=== PATIENT | male | born 1955 | race Caucasian/White ===

== ENCOUNTER → 2017-05-07 | Outpatient (CLI) | payer BC ==
[~2017-05-07] MED LIST: ALFU10TA2 PO; ALLO300T2 PO; ATOR-22 PO; HYDC25 PO; HYDR-3419 PO; LISI-526 PO; MELO15TA10 PO
--- NOTE | 2017-05-07 18:08 | DIAGNOSTIC IMAGING REPORT ---
CT SCAN OF THE ABDOMEN AND PELVIS WITHOUT IV CONTRAST CLINICAL HISTORY: Nephrolithiasis. COMPARISON STUDY: Abdominal CT dated 12/05/2011. TECHNIQUE: CT scan of the abdomen and pelvis is performed from the lung bases to the proximal femora. Images are reviewed in the axial, sagittal, and coronal planes. IV contrast was not administered for this examination as per the referring clinician. Automated dose control exposure was utilized. CT DOSE: 1704.82 mGy.cm FINDINGS: Lung bases: The heart is normal in size and without pericardial effusion. A punctate calcified granuloma is noted in the right middle lobe. The lung bases are otherwise clear. There is a tiny hiatal hernia. Liver: The unenhanced liver is normal in size, contour, and attenuation. There is no intrahepatic biliary ductal dilatation. Gallbladder: Unremarkable. Spleen: Normal in size and attenuation. Pancreas: The unenhanced pancreas is grossly unremarkable. Adrenal glands: Unremarkable. Kidneys: The unenhanced kidneys demonstrate mild cortical atrophy. There is a 10 mm obstructing calculus in the left proximal ureter at the level of L4. This is best seen on axial image #246, and this causes moderate to severe left-sided hydronephrosis. There is associated left-sided perinephric stranding and trace fluid. There is a 15 mm nonobstructing calculus in the interpolar left kidney. At least 3 tiny nonobstructing calculi are present left lower pole and measure up to 5 mm. No right renal calculi are identified and there is no right-sided hydronephrosis. There is no evidence of contour deforming renal mass lesion. Abdominal vasculature: The abdominal aorta is normal in course and caliber noting moderate atherosclerotic calcification. Bowel: The small bowel and colon are normal in course and caliber. The appendix is well-visualized and normal. Peritoneum: There is no intraperitoneal free air or abdominal ascites. There is a fat-containing umbilical hernia. Lymphadenopathy: None. Pelvic viscera: The prostate gland is mildly enlarged and demonstrates median lobe hypertrophy. The bladder is normal as imaged. There is a small fat-containing right inguinal hernia. Skeletal structures: The skeletal structures are osteopenic. There is mild to moderate lumbosacral spondylosis. A large posterior discussed by complex at L5-S1 likely contributes to acquired compromise of the central canal. No lytic or blastic lesions are seen. IMPRESSION: 1. There is a 10 mm obstructing calculus in the left proximal ureter. This causes moderate to severe left-sided hydronephrosis. 2. An additional 15 mm nonobstructing calculus is present in the interpolar left kidney. 3. Additional smaller nonobstructing calculi are present in the left lower pole. 4. No right renal calculi are identified. 5. Additional findings as above. Electronically signed by: Rolly Frazier M.D. 05/07/2017 6:07 PM Dictated Date/Time: 05/07/2017 5:59 PM
--- NOTE | 2017-05-07 18:15 | DIAGNOSTIC IMAGING REPORT ---
TWO VIEW CHEST CLINICAL HISTORY: Preoperative examination. Nephrolithiasis. FINDINGS: PA and lateral chest radiographs are obtained. No prior studies are available for comparison at the time of dictation. The cardiomediastinal silhouette is unremarkable. The lungs and pleural spaces are clear. There is no pneumothorax. The skeletal structures appear osteopenic. Mild degenerative change is seen in the thoracic spine. IMPRESSION: No active disease in the chest. Electronically signed by: Rolly Frazier M.D. 05/07/2017 6:14 PM Dictated Date/Time: 05/07/2017 6:13 PM
[2017-05-07 18:42] LABS: BASO % 0.1 %; BASO ABS # 0.01 K/uL (0-0.2); COMPLETE YES; EOS % 1.7 %; HEMATOCRIT 47.4 % (42-52); IG% 0.2 %; LYMPH % 17.8 %; LYMPH ABS # 1.91 K/uL (1.2-3.4); MEAN CELL VOLUME 96.9 fL (80-100); MEAN CORPUSCULAR HEMOGLOBIN 31.9 pg (25-34); MEAN CORPUSCULAR HGB CONC 32.9 g/dl (32-36); MEAN PLATELET VOLUME 9.1 fL (7.4-10.4); MONO % 5.6 %; NEUT % 74.6 %; PLATELET COUNT 270 K/uL (130-400); RED BLOOD COUNT 4.89 M/uL (4.7-6.1); WHITE BLOOD COUNT 10.76 K/uL (4.8-10.8)
[2017-05-07 18:52] LABS: URINE APPEARANCE CLEAR (CLEAR); URINE BILIRUBIN NEG (NEG); URINE COLOR YELLOW; URINE EPITHELIAL CELL AUTO 0-5 /lpf (0-5); URINE NITRITE NEG (NEG); UROBILINOGEN NEG (NEG)
[2017-05-07 18:54] LABS: MANUAL MICROSCOPIC REQUIRED? NO; REVIEW REQ? YES
[2017-05-07 19:13] LABS: BLOOD UREA NITROGEN 19 mg/dl (7-18); BUN/CREATININE RATIO 10.8 (10-20); CARBON DIOXIDE 26 mmol/L (21-32); CHLORIDE 112 mmol/L (98-107); POTASSIUM 4.6 mmol/L (3.5-5.1); SODIUM 143 mmol/L (136-145)
== END | disposition home or self-care (01) ==
LOC: C.CTS 17:41
PROVIDERS: ATTEND Urology
DX: N20.0 Calculus of kidney (principal); N20.1 Calculus of ureter; R94.31 Abnormal electrocardiogram [ECG] [EKG]

== ENCOUNTER → 2017-05-10 | Day surgery (SDC) | payer BC ==
[2017-05-08 09:09] VITALS: Ht 175.3 cm; Wt 104.5 kg
[~2017-05-10] VITALS: Ht 175.3 cm; Wt 104.5 kg
[~2017-05-10] MED LIST changes: +ATROPINE SULFATE 0.1 MG/ML 5ML SYR IV PRN; +CIPROFLOXACIN 400MG / D5W IV SCH; +DEXAMETHASONE SOD INJ 4 MG/ML VIAL IV PRN; +DEXAMETHASONE SOD INJ 4 MG/ML VIAL ONE; +EpHEDrine SULFATE INJ 50 MG/ML AMP IV PRN; +FENTANYL CITRATE INJ 50 MCG/1 ML 2 ML VIAL IV PRN; +FENTANYL CITRATE INJ 50 MCG/1 ML 2 ML VIAL ONE; -HYDC25 PO; +HYDROCODONE/ACETAMOPHEN 5/325MG TAB ONE; +KETOROLAC TROMETHAMINE 30 MG/ML VIAL IV. PRN; +LABETALOL HCL IV 5 MG/ML 20ML IV PRN; +LACTATED RINGER'S 1000ML 1,000 ML IV SCH; +LIDOCAINE HCL 2% 2 ML VIAL (20MG/ML) ONE; +METOCLOPRAMIDE HCL INJ 5 MG/ML 2 ML VIAL IV PRN; +MIDAZOLAM HCL 1 MG/ML 2ML VIAL ONE; +MoRPHine SULFATE 10 MG/ML CARP/VIAL IV PRN; +NURSING VERBAL MED ORDER ONE; +ONDANSETRON INJ 2 MG/ML 2 ML VIAL IV PRN; +ONDANSETRON INJ 2 MG/ML 2 ML VIAL ONE; +PHENYLEPHRINE 100MCG/ML 5ML SYR IV PRN; +PROPOFOL IV EMULSION 10 MG/ML 20 ML VIAL IV ONE
--- NOTE | 2017-05-10 08:48 | DIAGNOSTIC IMAGING REPORT ---
[facility] CLINICAL HISTORY: Nephrolithiasis. COMPARISON STUDY: CT of the abdomen and pelvis May 07, 2017. FINDINGS: Pelvic calcifications reflect phleboliths and prostatic calcifications. A 1.1 cm proximal left ureteral calculus is noted. This may be slightly more proximal in location than on exam of May 07, 2017. A 1.7 cm left renal calculus is noted. A few smaller left renal calculi are present. There are no right renal calculus. IMPRESSION: 1. 1.1 cm proximal left ureteral calculus. 2. 1.7 cm left renal calculus and a few smaller left renal calculi. Electronically signed by: Konrad Sotelo M.D. 05/10/2017 8:47 AM Dictated Date/Time: 05/10/2017 8:22 AM
--- NOTE | 2017-05-10 09:38 | History & Physical Bridge - SC ---
H&P Re-Evaluation Bridge Note: I have examined the patient, reviewed the History & Physical and in the interval since the performance of the History & Physical I have noted the following changes of clinical significance: No changes noted
--- NOTE | 2017-05-10 10:35 | [facility] Post Operative Brief Note ---
Immediate Operative Summary Operative Date May 10, 2017. Pre-Operative Diagnosis Left ureteral calculi Post-Operative Diagnosis Same Procedure(s) Performed Left Extracorporeal Shock Wave Lithotripsy - Ureteral Surgeon Dr. Hernandez Foot Worker Surgeon(s) None Estimated Blood Loss 0 mL Findings stone appeared to fragment Specimens None
--- NOTE | 2017-05-10 10:37 | Discharge Instructions-SurgCtr ---
Discharge Instructions Date of Service May 10, 2017. Visit Reason for Visit: Stones Discharge Discharge Diagnosis / Problem: post op left eswl Discharge Goals Goal(s): Decrease discomfort, Improve function, Increase independence, Improve disease control Activity Recommendations Activity Limitations: per Instructions/Follow-up section (no driving on narcotics) Anesthesia . Post Anesthesia Instructions: If you have had General Anesthesia or IV Sedation: * Do not drive today. * Resume driving when surgeon permits. * Do not make important decisions or sign legal documents today. * Call surgeon for: 1. Temperature elevations greater than 101 degrees F. 2. Uncontrollable pain. 3. Excessive bleeding. 4. Persistent nausea and vomiting. 5. Medication intolerance (nausea, vomiting or rash). * For nausea and vomiting use only clear liquids such as: tea, soda, bouillon until nausea subsides, then gradually increase diet as tolerated. * If you have any concerns or questions, call your surgeon's office. If physician is unavailable and it is an emergency, call 911 or go to the nearest emergency room. . Diet Recommendations Home Diet: resume previous diet Procedures Procedures Performed: Left Extracorporeal Shock Wave Lithotripsy - Ureteral Pending Studies Studies pending at discharge: no Medical Emergencies . Who to Call and When: Medical Emergencies: If at any time you feel your situation is an emergency, please call 911 immediately. . Non-Emergent Contact Non-Emergency issues call your: Primary Care Provider, Urologist Call Non-Emergent contact if: temperature is above 101, your pain is not controlled . . "Provider Documentation" section prepared by Jethro Hernandez. .
--- NOTE | 2017-05-10 11:13 | OPERATIVE REPORT ---
DATE OF OPERATION: 05/10/2017 PREOPERATIVE DIAGNOSIS: Left ureteral stone. POSTOPERATIVE DIAGNOSIS: Same. PROCEDURE PERFORMED: Left ureteral ESWL. SURGEON: Dr. Hernandez. ANESTHESIA: General. INDICATIONS: The patient is a 61-year-old male who has been forming a number stones over the past several years including the large staghorn stone that required percutaneous removal on the same side several years ago who presents now with a 1 cm proximal ureteral stone and a larger 1.5 cm renal stone. The plan was to hit the ureteral stone first but since it was in the level of the kidney, we could not do both at the same time. DESCRIPTION OF THE PROCEDURE: The patient was taken to the operating room. He was given general anesthesia and Venodyne stockings had been placed and he had been given preoperative antibiotics. Stone was attempted to be visualized posteriorly but had to go over the top to get the stone into view. He was then given 2500 shocks, the majority at level 5. The stone did appear to fragment during the course of the procedure, it was difficult to see at the end of the procedure. I attest to the content of the Intraoperative Record and any orders documented therein. Any exception s are noted below.
[2017-05-10 12:10] VITALS: BP 132/66; PULSE 68; TEMP 36.6; O2SAT 98
--- NOTE | 2017-05-10 12:12 | Anesthesia Progress Nt - [facility] ---
Anesthesia Post Op Note Date & Time May 10, 2017 at 12:12 Vital Signs Pain Intensity: 4 Vital Signs Past 12 Hours Date Time Temp Pulse Resp B/P (MAP) Pulse Ox O2 Delivery O2 Flow Rate FiO2 05/10/17 11:40 36.3 61 14 144/82 (102) 100 Room Air 05/10/17 11:14 69 10 97 05/10/17 11:14 36.4 69 10 05/10/17 11:12 147/79 05/10/17 11:09 66 14 05/10/17 11:09 66 14 93 05/10/17 11:07 155/86 05/10/17 11:04 77 16 94 05/10/17 11:04 77 16 05/10/17 11:02 158/87 05/10/17 10:59 68 14 05/10/17 10:59 65 14 98 05/10/17 10:57 144/87 05/10/17 10:54 72 15 05/10/17 10:54 73 15 98 05/10/17 10:52 172/81 05/10/17 10:50 36.2 70 16 172/81 97 Mask 6 05/10/17 07:41 36.5 54 18 155/86 (109) 97 Room Air Notes Mental Status: alert / awake / arousable, participated in evaluation Pt Amnestic to Procedure: Yes Nausea / Vomiting: adequately controlled Pain: adequately controlled Airway Patency, RR, SpO2: stable & adequate BP & HR: stable & adequate Hydration State: stable & adequate Anesthetic Complications: no major complications apparent
== END | disposition home or self-care (01) ==
LOC: X.SURG 06:27
PROVIDERS: ATTEND Urology
DX: N20.1 Calculus of ureter (principal); N40.1 Benign prostatic hyperplasia with lower urinary tract symptoms; N13.8 Other obstructive and reflux uropathy; E78.00 Pure hypercholesterolemia, unspecified; I10 Essential (primary) hypertension; Z80.41 Family history of malignant neoplasm of ovary; Z82.49 Family history of ischemic heart disease and other diseases of the circulatory system; Z83.3 Family history of diabetes mellitus; Z72.0 Tobacco use; Z79.899 Other long term (current) drug therapy

== ENCOUNTER → 2017-05-21 | Outpatient (CLI) | payer BC ==
[~2017-05-21] MED LIST changes: -ATROPINE SULFATE 0.1 MG/ML 5ML SYR IV PRN; -CIPROFLOXACIN 400MG / D5W IV SCH; -DEXAMETHASONE SOD INJ 4 MG/ML VIAL IV PRN; -DEXAMETHASONE SOD INJ 4 MG/ML VIAL ONE; -EpHEDrine SULFATE INJ 50 MG/ML AMP IV PRN; -FENTANYL CITRATE INJ 50 MCG/1 ML 2 ML VIAL IV PRN; -FENTANYL CITRATE INJ 50 MCG/1 ML 2 ML VIAL ONE; -HYDROCODONE/ACETAMOPHEN 5/325MG TAB ONE; -KETOROLAC TROMETHAMINE 30 MG/ML VIAL IV. PRN; -LABETALOL HCL IV 5 MG/ML 20ML IV PRN; -LACTATED RINGER'S 1000ML 1,000 ML IV SCH; -LIDOCAINE HCL 2% 2 ML VIAL (20MG/ML) ONE; -METOCLOPRAMIDE HCL INJ 5 MG/ML 2 ML VIAL IV PRN; -MIDAZOLAM HCL 1 MG/ML 2ML VIAL ONE; -MoRPHine SULFATE 10 MG/ML CARP/VIAL IV PRN; -NURSING VERBAL MED ORDER ONE; -ONDANSETRON INJ 2 MG/ML 2 ML VIAL IV PRN; -ONDANSETRON INJ 2 MG/ML 2 ML VIAL ONE; -PHENYLEPHRINE 100MCG/ML 5ML SYR IV PRN; -PROPOFOL IV EMULSION 10 MG/ML 20 ML VIAL IV ONE
== END | disposition home or self-care (01) ==
LOC: C.LABSPEC 16:56
PROVIDERS: ATTEND Urology
DX: N20.0 Calculus of kidney (principal)

== ENCOUNTER → 2017-05-21 | Outpatient (CLI) | payer BC ==
--- NOTE | 2017-05-21 12:51 | DIAGNOSTIC IMAGING REPORT ---
[facility] CLINICAL HISTORY: N20.0 nephrocalcinosis COMPARISON STUDY: 05/10/2017 FINDINGS: The soft tissues, psoas shadows, renal outlines and intestinal gas pattern appear normal. There is no evidence for bowel obstruction. No abnormal abdominal calcifications are seen. Fragmentation of the calcifications lower aspect left kidney. Proximal left ureteral calculus appears to have passed. Several pelvic prosthetic calcifications. IMPRESSION: 1. Interval passage of the proximal left ureteral calculus produces described. 2. Fragmented calcifications lower pole left kidney unchanged. Electronically signed by: Yefri Rinaldi M.D. 05/21/2017 12:50 PM Dictated Date/Time: 05/21/2017 12:48 PM
== END | disposition home or self-care (01) ==
LOC: C.RAD 12:24
PROVIDERS: ATTEND Urology
DX: N20.0 Calculus of kidney (principal)

== ENCOUNTER → 2017-05-24 | Day surgery (SDC) | payer BC ==
[2017-05-23 07:43] VITALS: Ht 175.3 cm; Wt 104.5 kg
[~2017-05-24] VITALS: Ht 175.3 cm; Wt 104.5 kg
[~2017-05-24] MED LIST changes: +CIPROFLOXACIN 400MG / D5W IV SCH; +LACTATED RINGER'S 1000ML 1,000 ML IV SCH
[2017-05-24 07:08] VITALS: BP 102/82; PULSE 62; TEMP 36.3; O2SAT 97
== END | disposition home or self-care (01) ==
LOC: X.SURG 06:51
PROVIDERS: ATTEND Urology
DX: N20.0 Calculus of kidney (principal); Z53.29 Procedure and treatment not carried out because of patient's decision for other reasons; N40.1 Benign prostatic hyperplasia with lower urinary tract symptoms; N13.8 Other obstructive and reflux uropathy; I10 Essential (primary) hypertension; E78.00 Pure hypercholesterolemia, unspecified; Z79.899 Other long term (current) drug therapy

== ENCOUNTER → 2017-05-28 | Outpatient (CLI) | payer BC ==
[~2017-05-28] MED LIST changes: -CIPROFLOXACIN 400MG / D5W IV SCH; -LACTATED RINGER'S 1000ML 1,000 ML IV SCH
[2017-05-28 12:32] LABS: BASO % 0.2 %; BASO ABS # 0.01 K/uL (0-0.2); COMPLETE YES; EOS % 2.1 %; IG% 0.2 %; LYMPH ABS # 1.28 K/uL (1.2-3.4); MEAN CELL VOLUME 97.8 fL (80-100); MEAN CORPUSCULAR HEMOGLOBIN 32.7 pg (25-34); MEAN CORPUSCULAR HGB CONC 33.5 g/dl (32-36); MEAN PLATELET VOLUME 9.8 fL (7.4-10.4); MONO % 9.6 %; NEUT % 63.9 %; PLATELET COUNT 238 K/uL (130-400); RED BLOOD COUNT 5.01 M/uL (4.7-6.1); WHITE BLOOD COUNT 5.34 K/uL (4.8-10.8)
[2017-05-28 14:03] LABS: BLOOD UREA NITROGEN 16 mg/dl (7-18); BUN/CREATININE RATIO 11.7 (10-20); CALCIUM 9.9 mg/dl (8.5-10.1); CARBON DIOXIDE 26 mmol/L (21-32); CHLORIDE 108 mmol/L (98-107); GLUCOSE 101 mg/dl (70-99); POTASSIUM 4.4 mmol/L (3.5-5.1); SODIUM 140 mmol/L (136-145)
== END | disposition home or self-care (01) ==
LOC: C.LABPBG 09:22
PROVIDERS: ATTEND Urology
DX: N20.0 Calculus of kidney (principal)

== ENCOUNTER → 2017-05-30 | Outpatient (CLI) | payer BC ==
[~2017-05-30] MED LIST changes: -ALFU10TA2 PO; +ALFU10TA30 PO
--- NOTE | 2017-05-30 19:03 | DIAGNOSTIC IMAGING REPORT ---
[facility] CLINICAL HISTORY: Nephrolithiasis. COMPARISON STUDY: CT of the abdomen and pelvis May 07, 2017 and KUB May 21, 2017. FINDINGS: A 1.9 x 1.1 cm irregular calculus within lower pole of the left kidney is again noted. There may be a few small adjacent fragments or calculi. No ureteral calculi are identified. Pelvic calcifications likely reflect phlebolith and prostatic calcifications. IMPRESSION: 1. No change in a 1.9 x 1.1 cm calculus within the lower pole of the left kidney with a few adjacent smaller calculi/fragments. 2. No ureteral calculi/fragments identified. Electronically signed by: Konrad Sotelo M.D. 05/30/2017 7:02 PM Dictated Date/Time: 05/30/2017 6:59 PM
== END | disposition home or self-care (01) ==
LOC: C.LAB 17:37
PROVIDERS: ATTEND Urology
DX: N20.0 Calculus of kidney (principal)

== ENCOUNTER → 2017-05-31 | Day surgery (SDC) | payer BC ==
[2017-05-30 08:52] VITALS: Ht 175.3 cm; Wt 104.5 kg
[~2017-05-31] VITALS: Ht 175.3 cm; Wt 104.5 kg
[~2017-05-31] MED LIST changes: +ATROPINE SULFATE 0.1 MG/ML 5ML SYR IV PRN; +CIPROFLOXACIN 400MG / D5W IV SCH; +DEXAMETHASONE SOD INJ 4 MG/ML VIAL ONE; +FENTANYL CITRATE INJ 50 MCG/1 ML 2 ML VIAL IV PRN; +FENTANYL CITRATE INJ 50 MCG/1 ML 2 ML VIAL ONE; +LABETALOL HCL IV 5 MG/ML 20ML IV PRN; +LACTATED RINGER'S 1000ML 1,000 ML IV SCH; +LIDOCAINE HCL 2% 2 ML VIAL (20MG/ML) ONE; +MIDAZOLAM HCL 1 MG/ML 2ML VIAL ONE; +NURSING VERBAL MED ORDER ONE; +ONDANSETRON INJ 2 MG/ML 2 ML VIAL IV PRN; +ONDANSETRON INJ 2 MG/ML 2 ML VIAL ONE; +PROPOFOL IV EMULSION 10 MG/ML 20 ML VIAL IV ONE
--- NOTE | 2017-05-31 12:23 | [facility] Post Operative Brief Note ---
Immediate Operative Summary Operative Date May 31, 2017. Pre-Operative Diagnosis Left Renal Stone Post-Operative Diagnosis Same Procedure(s) Performed Left Extracorporeal Shock Wave Lithotripsy, Repeat Surgeon Dr Hernandez Board Handler Surgeon(s) None Estimated Blood Loss 0ml Findings large lower pole l renal stone Specimens None Disposition Recovery Room / PACU
--- NOTE | 2017-05-31 12:25 | Discharge Instructions-SurgCtr ---
Discharge Instructions Date of Service May 31, 2017. Visit Reason for Visit: Stones Discharge Discharge Diagnosis / Problem: post op l renal stone Discharge Goals Goal(s): Decrease discomfort, Improve function, Improve disease control Medications Stopped Medications Name(s): Meloxicam- last dose 8 days ago. Activity Recommendations Activity Limitations: resume your previous activity Anesthesia . Post Anesthesia Instructions: If you have had General Anesthesia or IV Sedation: * Do not drive today. * Resume driving when surgeon permits. * Do not make important decisions or sign legal documents today. * Call surgeon for: 1. Temperature elevations greater than 101 degrees F. 2. Uncontrollable pain. 3. Excessive bleeding. 4. Persistent nausea and vomiting. 5. Medication intolerance (nausea, vomiting or rash). * For nausea and vomiting use only clear liquids such as: tea, soda, bouillon until nausea subsides, then gradually increase diet as tolerated. * If you have any concerns or questions, call your surgeon's office. If physician is unavailable and it is an emergency, call 911 or go to the nearest emergency room. . Diet Recommendations Home Diet: resume previous diet Procedures Procedures Performed: Left Extracorporeal Shock Wave Lithotripsy, Repeat Pending Studies Studies pending at discharge: no Medical Emergencies . Who to Call and When: Medical Emergencies: If at any time you feel your situation is an emergency, please call 911 immediately. . Non-Emergent Contact Non-Emergency issues call your: Urologist Call Non-Emergent contact if: temperature is above 101 . . "Provider Documentation" section prepared by Jethro Hernandez. .
[2017-05-31 13:15] VITALS: TEMP 36.5
--- NOTE | 2017-05-31 13:36 | Anesthesia Progress Nt - [facility] ---
Anesthesia Post Op Note Date & Time May 31, 2017 at 13:36 Vital Signs Pain Intensity: 0 Vital Signs Past 12 Hours Date Time Temp Pulse Resp B/P (MAP) Pulse Ox O2 Delivery O2 Flow Rate FiO2 05/31/17 13:15 36.5 60 18 152/84 (106) 99 Room Air 05/31/17 13:01 120/98 05/31/17 13:01 36.5 56 18 120/98 95 Room Air 05/31/17 12:59 59 20 96 05/31/17 12:59 59 20 05/31/17 12:55 123/73 05/31/17 12:54 59 18 96 05/31/17 12:54 59 18 05/31/17 12:50 123/75 05/31/17 12:49 59 15 97 05/31/17 12:49 60 15 05/31/17 12:45 116/72 05/31/17 12:44 60 17 97 05/31/17 12:44 59 17 05/31/17 12:40 119/78 05/31/17 12:39 61 16 05/31/17 12:39 62 16 98 05/31/17 12:35 117/81 05/31/17 12:34 36.4 66 12 146/96 98 Mask 6 05/31/17 12:34 62 18 146/96 98 05/31/17 12:34 62 18 05/31/17 09:24 36.3 58 20 124/78 (93) 94 Room Air Notes Mental Status: alert / awake / arousable, participated in evaluation Pt Amnestic to Procedure: Yes Nausea / Vomiting: adequately controlled Pain: adequately controlled Airway Patency, RR, SpO2: stable & adequate BP & HR: stable & adequate Hydration State: stable & adequate Anesthetic Complications: no major complications apparent
[2017-05-31 13:40] VITALS: BP 139/81; PULSE 55; O2SAT 99
--- NOTE | 2017-05-31 15:10 | [facility] Operative Report ---
Operative Report Operative Date May 31, 2017. Pre-Operative Diagnosis Left Renal Stone Procedure(s) Performed r renal eswl Surgeon Dr Hernandez Division Operations Specialist Surgeon(s) None Estimated Blood Loss 0ml Findings large 1 .6 cm l lower pole renal stone Specimens None Disposition Recovery Room / PACU Description of Procedure The patient was taken to the operating room he had been given antibiotics preoperatively and had Venodyne stockings placed. His given general anesthesia in the supine position. The kidney stone was visualized to views with the lithotripsy machine. The patient received 2500 shocks majority of level V. It did appear to be some fragmentation of stone. Patient did breathe quite a bit during the procedure. At the end of procedure the patient was transferred to the recovery room in stable condition. I attest to the content of the Intraoperative Record and any orders documented therein. Any exceptions are noted below.
== END | disposition home or self-care (01) ==
LOC: X.SURG 08:51
PROVIDERS: ATTEND Urology
DX: N20.0 Calculus of kidney (principal); N40.1 Benign prostatic hyperplasia with lower urinary tract symptoms; N13.8 Other obstructive and reflux uropathy; I10 Essential (primary) hypertension; E78.00 Pure hypercholesterolemia, unspecified; Z72.0 Tobacco use; Z79.899 Other long term (current) drug therapy